=== PATIENT | female | born 2000 | race Caucasian/White ===

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

== ENCOUNTER → 2019-01-29 | Outpatient (REF) | payer OTHER, SELFPAY ==
[2019-01-29 23:35] LABS: CHLAMYDIA DNA AMPLIFICATION NEGATIVE (NEGATIVE); GC DNA AMPLIFICATION NEGATIVE (NEGATIVE)
== END ==
LOC: M SFHCLERA 17:06
PROVIDERS: ATTEND Nurse Practitioner Family
DX: Z11.3 Encounter for screening for infections with a predominantly sexual mode of transmission (principal)

== ENCOUNTER 2023-02-24 08:44 | Emergency (ER) | payer BC ==
[~2023-02-24] VITALS: Ht 170.2 cm; Wt 92.0 kg
[2023-02-24] MEDS ORDERED: VENL150C43 (08:57)
[2023-02-24] MEDS ORDERED: PHEN-239 (08:57)
[2023-02-24] MEDS ORDERED: KETOROLAC 30 MG/ML 1ML VIAL IM ONE (09:15)
[2023-02-24] MEDS ORDERED: AMOX875T2 PO (09:15)
[2023-02-24] MEDS ORDERED: KETO10TAB PO (09:15)
[2023-02-24 10:10] VITALS: BP 150/90
[2023-02-24] MEDS ORDERED: AUGMENTIN 875 MG TAB PO ONE (10:15)
== END 2023-02-24 10:55 | disposition home or self-care (01) ==
LOC: M ED 08:44
DX: K08.89 Other specified disorders of teeth and supporting structures (principal)
CPT/HCPCS: 96372; 99283; J1885

== ENCOUNTER 2023-05-12 04:05 | Emergency (ER) | payer BC ==
[~2023-05-12] VITALS: Ht 170.2 cm; Wt 92.2 kg
[~2023-05-12 04:05] MED LIST: AMOX875T2 PO; KETO10TAB PO; PHEN-239; VENL150C43
[2023-05-12 04:38] LABS: BASO % 0.5 % (0.0-1.0); EOS % 0.3 % (0.0-3.0); HEMATOCRIT 42.6 % (36.0-47.0); HEMOGLOBIN 13.2 g/dl (12.0-15.5); LYMPH # 1.8 10^3/uL (1.5-5.0); LYMPH % 22.3 % (24.0-44.0); MEAN CORPUSCULAR VOLUME 83.9 fl (80.0-96.0); MONO # 0.4 10^3/uL (0.0-0.8); MONO % 5.4 % (2.0-8.0); NEUTROPHILS # 5.7 10^3/uL (1.5-8.5); NEUTROPHILS % 71.2 % (36.0-66.0); PLATELET COUNT, AUTOMATED 291 10^3/uL (150-450); RED BLOOD COUNT 5.08 10^6/uL (4.00-5.40); WHITE BLOOD COUNT 7.9 10^3/uL (4.0-10.0)
[2023-05-12 05:02] LABS: ETHYL ALCOHOL (ETHANOL) 0.167 % (0.000-0.010)
[2023-05-12 05:04] LABS: BLOOD UREA NITROGEN 9 MG/DL (9-23); CALCIUM LEVEL 9.4 MG/DL (8.5-10.1); CARBON DIOXIDE LEVEL 24 MMOL/L (20-31); CHLORIDE LEVEL 109 MMOL/L (98-107); CREATININE FOR GFR 0.76 MG/DL (0.55-1.30); GLOMERULAR FILTRATION RATE > 60.0 (>60); GLUCOSE, FASTING 90 MG/DL (60-100); SODIUM LEVEL 144 MMOL/L (136-145)
[2023-05-12 05:11] LABS: HCG, SERUM QUALITATIVE NEGATIVE (NEGATIVE)
[2023-05-12 05:35] VITALS: O2SAT 100
[2023-05-12] MEDS ORDERED: ISOVUE-370 76% 100ML VIAL As Ordered ONE (05:40)
[2023-05-12] MEDS ORDERED: ACETAMINOPHEN 500 MG TAB PO ONE (06:50)
[2023-05-12 07:35] VITALS: BP 130/84; TEMP 97.9
== END 2023-05-12 08:30 | disposition home or self-care (01) ==
LOC: M ED 04:05
DX: S80.01XA Contusion of right knee, initial encounter (principal); S80.02XA Contusion of left knee, initial encounter; V43.62XA Car passenger injured in collision with other type car in traffic accident, initial encounter; Y92.410 Unspecified street and highway as the place of occurrence of the external cause; Z79.899 Other long term (current) drug therapy
CPT/HCPCS: 36415; 51702; 70450; 71260; 72125; 72128; 72131; 73564; 74177; 80048; 82077; 84703; 85025; 86850; 86900; 86901; 93041; 94760; 99285; Q9967

== ENCOUNTER 2024-08-26 09:31 | Emergency (ER) | payer OTHER, BC ==
[~2024-08-26] VITALS: Ht 170.2 cm; Wt 95.9 kg
[2024-08-26] MEDS ORDERED: VYVA60CA PO ×2 (09:42)
[2024-08-26 11:51] VITALS: BP 120/77; TEMP 98.2; O2SAT 100
== END 2024-08-26 12:20 | disposition home or self-care (01) ==
LOC: M ED 09:31
DX: S93.401A Sprain of unspecified ligament of right ankle, initial encounter (principal); Y92.9 Unspecified place or not applicable; Y93.9 Activity, unspecified; Y99.0 Civilian activity done for income or pay; F10.10 Alcohol abuse, uncomplicated; Z79.899 Other long term (current) drug therapy